=== PATIENT | female | born 1990 | race Caucasian/White ===

== ENCOUNTER 2019-11-08 16:19 | Inpatient (IN) | payer BC, OTHER ==
[~2019-11-08 16:19] MED LIST: Heparin 1,000 UNITS/ML VIAL ONE; Iopamidol-370 76% 500 ML 1 ML ONE
[2019-11-08] MEDS ORDERED: Ondansetron PF 4 MG/2 ML Vial ONE ×2 (16:49→20:03)
[2019-11-08] MEDS ORDERED: Morphine 4 MG/ML VIAL ONE ×2 (16:49→17:23)
[2019-11-08] MEDS ORDERED: Vancomycin 1 GM/200 ML BAG ONE (16:49)
[2019-11-08] MEDS ORDERED: Cefepime 2 GM VIAL ONE (16:49)
[2019-11-08 17:03] LABS: #Lymphocytes 1.1 thou/uL (1.20-3.40); #Monocytes 0.7 thou/uL (0.11-0.59); #Neutrophils 8.9 thou/uL (1.40-6.50); %Basophils 0.4 % (0.0-1.0); %Eosinophils 0.2 % (0.0-10.0); %Lymphocytes 10.1 % (21.0-51.0); %Monocytes 6.7 % (0.0-10.0); %Neutrophils 82.6 % (42.0-75.0); Hemoglobin 13.9 g/dL (12.0-16.0); Mean Corpuscular HGB CONC 33.6 g/dL (32.0-36.0); Mean Corpuscular Volume 95.4 fL (78.0-98.0); Mean Platelet Volume 7.5 fL (7.4-10.4); Platelet Count 241 thou/uL (130-400); Red Blood Cell (RBC) Count 4.33 mill/uL (4.20-5.40); White Blood Cell (WBC) Count 10.8 thou/uL (4.8-10.8)
[2019-11-08 17:28] LABS: ALT (SGPT) 20 U/L (8-55); AST (SGOT) 25 U/L (5-34); Albumin 3.8 g/dL (3.5-5.0); Alkaline Phosphatase 61 U/L (40-110); Anion Gap 15 mmol/L (10-20); BUN (Urea Nitrogen) 11 mg/dL (7.0-18.7); Bilirubin, Total 0.5 mg/dL (0.2-1.2); CK (CPK) 55 U/L (29-168); Calc. Creatinine Clearance 0 mL/min (70-130); Calcium 8.3 mg/dL (7.8-10.44); Carbon Dioxide 19 mmol/L (22-29); Chloride 107 mmol/L (98-107); Estimated GFR-MDRD 71; Globulin 3.3 g/dL (2.4-3.5); Glucose 79 mg/dL (70-105); Lipase 8 U/L (8-78); Magnesium 1.7 mg/dL (1.6-2.6); Potassium 4.5 mmol/L (3.5-5.1); Protein, Total 7.1 g/dL (6.0-8.3); Sodium 136 mmol/L (136-145)
[2019-11-08 17:43] LABS: BHCG - Serum Negative (NEGATIVE); Pregs Control Background? CLEAR/WHITE (CLR/WHITE); Pregs Control Bar Appear? YES (CONTROL BAR)
--- NOTE | 2019-11-08 17:57 | ULT ---
RIGHT UPPER QUADRANT ULTRASOUND: Date: 11/08/2019 PROVIDED CLINICAL HISTORY: Right upper quadrant pain, history of polycystic kidney disease. COMPARISON: 03/06/2017. FINDINGS: The visualized portions of the IVC and pancreas appear normal. Cystic structures involving the liver are demonstrated, compatible with the provided clinical history of polycystic kidney disease. Numerou s bilateral renal cysts are also seen. There is no evidence for solid mass. There is no evidence for intrahepatic or extrahepatic biliary ductal dilatation. The common duct measures approximately 4.0 mm . The gallbladder demonstrates no stones, wall thickening, or pericholecystic fluid. The x ray developer reports a positive sonographic Holden's sign. IMPRESSION: Positive sonographic Holden's sign without evidence for gallstones or gallbladder wall thickening. POS: ABDELRAHMAN
[2019-11-08] MEDS ORDERED: Ketorolac Tromethamine 30 MG/ML VIAL ONE (18:00)
[2019-11-08] MEDS ORDERED: HYDROmorphone 0.5 MG/0.5 ML SYRINGE ONE (18:00)
--- NOTE | 2019-11-08 19:44 | CT ---
CT OF THE ABDOMEN AND PELVIS: Date: 11-08-2019 History: Constant sharp right upper quadrant pain, nausea, vomiting. Technique: Axial CT imaging obtained at 5 mm intervals from the lung bases through the pubic symphysi s with intravenous contrast. Coronal and sagittal reformatted imaging obtained. FINDINGS: Images are compared to a prior study performed 10-13-07. The visualized lung bases are unremarkable. No free intraperitoneal air is seen. Since the prior examination, there has been interval development of numerous cysts throughout the rig ht and left lobe of the liver, the largest noted in the posterior aspect of the dome on the right maria esther suring 4.4 cm. The gallbladder appears grossly unremarkable as does the spleen. The pancreas is unrem arkable. Bilateral adrenal glands are unremarkable. Both kidneys are markedly enlarged and contain innumerable cysts. The size of the kidneys has markedl y increased since the prior examination and the number and size of innumerable cysts within both kidn eys has progressed since the prior exam. On today's examination the right kidney measures at least 15 .7 cm in craniocaudal dimension, excluding a large cyst emanating from the upper pole and the left ki dney measures 18.5 cm in craniocaudal dimension. There is small volume nonspecific free fluid within the pelvic cul-de-sac posteriorly on the left. Th ere is an IUD within the uterus. There is a small fat containing umbilical hernia. No evidence for obstruction of the large or small bowel is seen. The appendix appears unremarkable. There is ventral hernia formation within the Epigastric region superior to the umbilicus, primarily c ontaining fat. There is a probable small amount of fluid and/or a focal node within a small fat conta ining hernia within the ventral upper abdomen on image 43 measuring 9 mm. The vascular structures of the abdomen/pelvis appear patent. No abdominal or pelvic lymphadenopathy is seen. No acute osseous abnormality is evident. IMPRESSION: 1. Progressive of cystic lesions within the liver and within bilateral kidneys. The kidneys are enlar ged. This constellation of findings is consistent autosomal dominant polycystic kidney disease. 2. Small nonobstructing fat containing umbilical hernia. 3. Superior to the umbilical hernia there are small fat containing ventral hernias, which include a n odular internal soft tissue component measuring in the 9 mm range which could represent a node or sma ll volume fluid within the fat containing hernia sac. Clinical correlation is required. 4. No evidence for small bowel obstruction or free intraperitoneal air. POS: HODAN
[2019-11-08 20:06] LABS: Bilirubin Negative (Negative); Blood, Urine 3+ (Negative); Clarity Turbid (Clear); Glucose, Urine (Dipstick) Normal (Negative); Ketone, Urine 40 mg/dL (Negative); Leukocyte 500 Leu/uL (Negative); Nitrite Negative (Negative); Protein, Urine (Dipstick) 50 mg/dL (Neg-Trace); RBC/HPF Greater than 50 HPF (0-3); Specific Gravity, Urine 1.044 (1.002-1.036); Squamous Epithelial 0-3 HPF (0-3); Urobilinogen Normal mg/dL (Less than 2); WBC/HPF Greater than 50 HPF (0-3); pH, Urine 5.5 (5.0-9.0)
[2019-11-08 20:12] LABS: Bacteria/HPF None Seen HPF (None Seen)
--- NOTE | 2019-11-08 21:34 | PDOC.HHP ---
Hospitalist HPI - History of Present Illness flank pain History of Present Illness: Ms. Cortez is a 29 year-old female with a PMHx of PCKD who presented to the ED for worsening dysuria, hematuria, and R-sided flank pain. Pt reports that approximately 4 days ago she developed burning while urinating, increase in frequency, and cloudy urine. She visited an urgent care center who prescribed her Bactrim. She took abx as directed, however she then developed R-sided flank pain. She then visited [facility] where they gave her additional antibiotics and was discharged. Pt overnight had acute worsening of her flank pain that she reports began to wrap around to her RUQ abdomen. Pt endorses subjective fever, chills, and nausea. Denies vomiting, diarrhea, melena. Denies pelvic pain or abnormal vaginal bleeding or discharge, has IUD in place. Has had prior UTIs, but infrequent. In ED patient febrile to 101.6, tachycardia to 130, BP 134/89, 99% on RA. Work- up included CT abdomen/pelvis which showed PCKD, but no stone or obstruction. Liver with multiple cysts. RUQUS no evidence of cholecystitis. Lipase 8, Mg 1.7, Lactic acid 1.3, AST/ALT 25/20, t. lorenza 0.5, Alk phos 61. BUN/Cr 11/0.92. Pt received 1L NS, morphine, dilaudid, vancomycin, and cefepime in ED. Hospitalist ROS - Review of Systems Constitutional: reports: fever, chills. denies: sweats, weakness, malaise, other Eyes: denies: pain, vision change, conjunctivae inflammation, eyelid inflammation, redness, other ENT: denies: ear pain, ear discharge, nose pain, nose discharge, nose congestion, mouth pain, mouth swelling, throat pain, throat swelling, other Respiratory: denies: cough, dry, shortness of breath, hemoptysis, SOB with excertion, pleuritic pain, sputum, wheezing, other Cardiovascular: denies: chest pain, palpitations, orthopnea, paroxysmal noc. dy spnea, edema, light headedness, other Gastrointestinal: reports: nausea, abdominal pain. denies: vomiting, diarrhea, constipation, melena, hematochezia, other Genitourinary: reports: dysuria, frequency, hematuria. denies: incontinence, retention, other Musculoskeletal: reports: back pain. denies: neck pain, shoulder pain, arm pain, hand pain, leg pain, foot pain, other Skin: denies: rash, lesions, sarah, bruising, other Neurological: denies: weakness, numbness, incoordination, change in speech, confusion, seizures, other - Medication Medications: No home medications. Allergic to Vicodin Hospitalist History - Past Medical History Other Medical History: Medical history of PCKD. - Past Surgical History Past Surgical History: reports: Tonsillectomy - Family History Other Family History: PCKD - Social History Smoking Status: Never smoker Alcohol: reports: Rare Drugs: reports: none Living Situation: With Family Activity level: independent ambulation - Exam General Appearance: NAD, awake alert Eye: PERRL, anicteric sclera ENT: normocephalic atraumatic, no oropharyngeal lesions, moist mucosa Neck: supple, symmetric, no JVD, no thyromegaly, no lymphadenopathy, no carotid bruit Heart: RRR, no murmur, no gallops, no rubs, normal peripheral pulses Respiratory: CTAB, no wheezes, no rales, no ronchi, normal chest expansion, no tachypnea, normal percussion Gastrointestinal: soft, non-distended, normal bowel sounds, no palpable masses, no hepatomegaly, no splenomegaly, no bruit, tender to palpation Gastrointestinal - other findings: R CVA tenderness Extremities: no cyanosis, no clubbing, no edema Skin: normal turgor, no lesions, no rashes Neurological: cranial nerve grossly intact, normal sensation to touch, no weakness, no focal deficits, no new deficit Musculoskeletal: normal tone, normal strength, no muscle wasting Psychiatric: normal affect, normal behavior, A&O x 3 Hospitalist Results - Labs Result Diagrams: 11/08/19 16:38 11/08/19 16:38 Lab results: WBC 10.8 thou/uL (4.8-10.8) 11/08/19 16:38 Hgb 13.9 g/dL (12.0-16.0) 11/08/19 16:38 Hct 41.3 % (36.0-47.0) 11/08/19 16:38 MCV 95.4 fL (78.0-98.0) 11/08/19 16:38 Plt Count 241 thou/uL (130-400) 11/08/19 16:38 Neutrophils % 82.6 % (42.0-75.0) H 11/08/19 16:38 Sodium 136 mmol/L (136-145) 11/08/19 16:38 Potassium 4.5 mmol/L (3.5-5.1) 11/08/19 16:38 Chloride 107 mmol/L (98-107) 11/08/19 16:38 Carbon Dioxide 19 mmol/L (22-29) L 11/08/19 16:38 BUN 11 mg/dL (7.0-18.7) 11/08/19 16:38 Creatinine 0.92 mg/dL (0.6-1.1) 11/08/19 16:38 Glucose 79 mg/dL (70-105) 11/08/19 16:38 Lactic Acid 1.3 mmol/L (0.5-2.2) 11/08/19 16:38 Calcium 8.3 mg/dL (7.8-10.44) 11/08/19 16:38 Total Bilirubin 0.5 mg/dL (0.2-1.2) 11/08/19 16:38 AST 25 U/L (5-34) 11/08/19 16:38 ALT 20 U/L (8-55) 11/08/19 16:38 Alkaline Phosphatase 61 U/L (40-110) 11/08/19 16:38 Creatine Kinase 55 U/L (29-168) 11/08/19 16:38 Serum Total Protein 7.1 g/dL (6.0-8.3) 11/08/19 16:38 Albumin 3.8 g/dL (3.5-5.0) 11/08/19 16:38 Lipase 8 U/L (8-78) 11/08/19 16:38 Urine Ketones 40 mg/dL (Negative) A 11/08/19 19:35 Urine Blood 3+ (Negative) A 11/08/19 19:35 Urine Nitrite Negative (Negative) 11/08/19 19:35 Ur Leukocyte Esterase 500 Morena/uL (Negative) A 11/08/19 19:35 Urine RBC Greater than 50 HPF (0-3) A 11/08/19 19:35 Urine WBC Greater than 50 HPF (0-3) A 11/08/19 19:35 Ur Squamous Epith Cells 0-3 HPF (0-3) 11/08/19 19:35 Urine Bacteria None Seen HPF (None Seen) 11/08/19 19:35 Hospitalist H&P A/P - Problem (1) Pyelonephritis Code(s): N12 - TUBULO-INTERSTITIAL NEPHRITIS, NOT SPCF ACUTE OR CHRONIC Status: Acute (2) Sepsis without septic shock Code(s): A41.9 - SEPSIS, UNSPECIFIED ORGANISM Status: Acute (3) RUQ pain Code(s): R10.11 - RIGHT UPPER QUADRANT PAIN Status: Acute (4) PCK (polycystic kidney disease) Code(s): Q61.3 - POLYCYSTIC KIDNEY, UNSPECIFIED Status: Acute - Plan Plan: Pyelonephritis: 29F hx of PCKD who presents with fever, dysuria, and R-sided flank pain. Failed outpatient abx bactrim for UTI. UA grossly positive. CT a/pelvis showed PCKD, but no evidence of stone or obstruction. Pt started on vancomycin and cefepime in ED. PLAN: -Continue vancomycin, cefepime -Trend kidney function -Urine Cx pending Sepsis without septic shock: Pt met SIRS criteria on admission with fever, tachycardia, and tachypnea. WBC 10.8. Lactic acid 1.3. SBP in 120s. In ED received 1L NS, vanc and cefepime. PLAN: -IVF -Continue vanc, cefepime -Blood cx pending -Trend fever curve, WBCs RUQ abdominal pain: RUQ abdominal pain mostly likely referred from kidney. Pt reports pain started as R flank pain then wrapped around to the front of her abdomen. RUQUS showed no evidence of cholecystitis. CT a/p showed enlarged liver with multiple cysts. LFTs AST/ALT 25/20, t. lorenza 0.5, alk phos 61. lipase 8. Abdomen is soft, mildly TTP but non-peritoneal. PLAN: -Treatment per pyelo -Trend labs, continue to monitor Polycystic Kidney Disease: Hx of PCKD. CT a/p showed multiple kidney cysts as well as liver cysts. BUN/Cr 11/0.92. Normotensive. PLAN: Continue to monitor kidney function DVT prophylaxis: SQ heparin FULL CODE
[2019-11-08 21:37] VITALS: BMI 33.0
[2019-11-08] MEDS ORDERED: Sodium Chloride 0.9% 1,000 ML IV SCH ×2 (22:00→22:30)
[2019-11-08] MEDS ORDERED: Morphine 2 MG/ML VIAL SLOW IVP PRN (22:07)
[2019-11-08] MEDS ORDERED: Ondansetron PF 4 MG/2 ML Vial IVP PRN (22:12)
[2019-11-08] MEDS: Morphine 4 MG/ML VIAL SLOW IVP PRN (22:31)
[2019-11-08] MEDS: Acetaminophen 325 MG TAB PO PRN (22:32)
[2019-11-09] MEDS: Morphine 4 MG/ML VIAL SLOW IVP PRN ×4 (02:30→16:53)
[2019-11-09] MEDS ORDERED: Morphine 2 MG/ML VIAL SLOW IVP SCH (04:15)
[2019-11-09] MEDS: Acetaminophen 325 MG TAB PO PRN (04:34)
[2019-11-09] MEDS ORDERED: Vancomycin HCl 1.25 GM in Sodium Chloride 0.9% 250 ML 250 ML IVPB SCH (05:00)
[2019-11-09 06:08] LABS: #Monocytes 0.8 thou/uL (0.11-0.59); #Neutrophils 8.8 thou/uL (1.40-6.50); %Basophils 0.2 % (0.0-1.0); %Eosinophils 0.3 % (0.0-10.0); %Lymphocytes 9.3 % (21.0-51.0); %Monocytes 7.7 % (0.0-10.0); %Neutrophils 82.4 % (42.0-75.0); Hemoglobin 12.7 g/dL (12.0-16.0); Mean Corpuscular HGB CONC 32.5 g/dL (32.0-36.0); Mean Corpuscular Hemoglobin 31.3 pg (27.0-31.0); Mean Corpuscular Volume 96.5 fL (78.0-98.0); Mean Platelet Volume 7.4 fL (7.4-10.4); Platelet Count 217 thou/uL (130-400); RBC Distribution Width 11.9 % (11.5-14.5); Red Blood Cell (RBC) Count 4.04 mill/uL (4.20-5.40); White Blood Cell (WBC) Count 10.6 thou/uL (4.8-10.8)
[2019-11-09 06:25] LABS: Lactic Acid 0.6 mmol/L (0.5-2.2)
[2019-11-09 06:29] LABS: ALT (SGPT) 17 U/L (8-55); AST (SGOT) 15 U/L (5-34); Albumin 3.2 g/dL (3.5-5.0); Alkaline Phosphatase 55 U/L (40-110); Anion Gap 13 mmol/L (10-20); BUN (Urea Nitrogen) 8 mg/dL (7.0-18.7); Bilirubin, Total 0.4 mg/dL (0.2-1.2); Calc. Creatinine Clearance 128 mL/min (70-130); Calcium 7.7 mg/dL (7.8-10.44); Carbon Dioxide 17 mmol/L (22-29); Chloride 110 mmol/L (98-107); Estimated GFR-MDRD 84; Globulin 2.7 g/dL (2.4-3.5); Glucose 94 mg/dL (70-105); Potassium 3.8 mmol/L (3.5-5.1); Protein, Total 5.9 g/dL (6.0-8.3); Sodium 136 mmol/L (136-145)
[2019-11-09] MEDS ORDERED: Cefepime 2 GM in Sodium Chloride 0.9% 100 ML IVPB SCH (09:00)
[2019-11-09] MEDS: Ondansetron ODT 4 MG TAB PO PRN ×2 (09:04→15:23)
[2019-11-09] MEDS: Prenatal Vitamin 1 TAB PO SCH (09:05)
[2019-11-09] MEDS: Heparin 5,000 UNITS/ML VIAL SC SCH ×2 (09:12→15:58)
[2019-11-09] MEDS ORDERED: Sodium Chloride 0.9% 1,000 ML IV SCH (09:52)
[2019-11-09] MEDS ORDERED: Acetaminophen/Codeine 30-300mg Tablet PO PRN (09:53)
[2019-11-09] MEDS ORDERED: cefTRIAXone\\ROCEPHIN 1 GM in Sodium Chloride 0.9% 100 ML IVPB SCH (10:00)
[2019-11-09] MEDS: Acetaminophen/Codeine 30-300mg Tablet PO PRN ×3 (10:02→18:22)
[2019-11-09] MEDS: cefTRIAXone\\ROCEPHIN 2 GM in Sodium Chloride 0.9% 100 ML IVPB SCH (10:24)
--- NOTE | 2019-11-09 13:21 | PDOC.HOSPP ---
- Subjective Encounter Date: 11/09/19 Encounter Time: 13:19 Subjective: pt up in bed complains of pain to her RUQ and right flank area. - Objective Vital Signs & Weight: Vital Signs (12 hours) Temp Pulse Resp BP BP BP Pulse Ox 11/09/19 12:00 98.7 F 100 18 114/62 97 11/09/19 08:58 102 H 20 122/61 11/09/19 08:00 98.8 F 88 18 91/52 L 96 11/09/19 05:35 99.7 F H 11/09/19 03:53 101.7 F H 117 H 16 102/59 L 96 Weight Weight 175 lb Result Diagrams: 11/09/19 05:57 11/09/19 05:57 Hospitalist ROS - Review of Systems Respiratory: denies: cough, dry, shortness of breath, hemoptysis, SOB with excertion, pleuritic pain, sputum, wheezing, other Cardiovascular: denies: chest pain, palpitations, orthopnea, paroxysmal noc. dyspnea, edema, light headedness, other Gastrointestinal: reports: other (right flank area) Musculoskeletal: reports: other - Medication Medications: Active Medications Generic Name Dose Route Start Last Admin Trade Name Freq PRN Reason Stop Dose Admin Acetaminophen 650 mg 11/08/19 22:12 11/09/19 04:34 Acetaminophen 325 Mg Tab PO 650 mg Q4H PRN Administration Headache/Fever/Mild Pain (1-3) Acetaminophen/Codeine Phosphate 2 tab 11/09/19 09:46 11/09/19 10:02 Acetaminophen/Codeine 30-300mg Tablet PO 2 tab Q4H PRN Administration Pain Heparin Sodium (Porcine) 5,000 units 11/09/19 09:00 11/09/19 09:12 Heparin 5,000 Units/Ml Vial SC 5,000 units TID CHUCKIE Administration Ceftriaxone Sodium 2 gm/ 100 mls @ 200 mls/hr 11/09/19 10:00 11/09/19 10:24 Sodium Chloride IVPB 100 mls Q24HR CHUCKIE Administration Sodium Chloride 1,000 mls @ 75 mls/hr 11/09/19 09:52 11/09/19 09:59 Normal Saline 0.9% IV Not Given .[id number] CHUCKIE Morphine Sulfate 4 mg 11/08/19 22:07 11/09/19 13:09 Morphine 4 Mg/Ml Vial SLOW IVP 4 mg Q4H PRN Administration Severe Pain (7-10) Ondansetron HCl 4 mg 11/08/19 22:12 11/09/19 09:04 Ondansetron Odt 4 Mg Tab PO 4 mg Q6H PRN Administration Nausea/Vomiting Multivit/Folic Acid/Iron 1 tab 11/09/19 09:00 11/09/19 09:05 Vitamin 1 Tab PO 1 tab DAILY CHUCKIE Administration - Exam Heart: negative: RRR, no murmur, no gallops, no rubs, normal peripheral pulses, irregular, diminshed peripheral pulses, murmur present, II/IV, III/IV Respiratory: negative: CTAB, no wheezes, no rales, no ronchi, normal chest expansion, no tachypnea, normal percussion, rales, rhonchi, tachypneic, wheezes Gastrointestinal: negative: soft, non-tender, non-distended, normal bowel sounds, no palpable masses, no hepatomegaly, no splenomegaly, no bruit, no guarding, no rigidity, tender to palpation, distended, diminished bowl sounds, voluntary guarding Extremities: negative: no cyanosis, no clubbing, no edema, 1+ LE edema, 2+ LE edema, clubbing Hosp A/P (1) UTI (urinary tract infection) Status: Acute (2) PCK (polycystic kidney disease) Code(s): Q61.3 - POLYCYSTIC KIDNEY, UNSPECIFIED Status: Acute (3) RUQ pain Code(s): R10.11 - RIGHT UPPER QUADRANT PAIN Status: Acute (4) Sepsis without septic shock Code(s): A41.9 - SEPSIS, UNSPECIFIED ORGANISM Status: Acute - Plan pt's urine indicated ecoli will change abx to ceftriaxone. will continue fluids. pt on dvt ppx. pt has liver cyst which could be causing her pain. will continue to monitor.
[2019-11-09 13:33] LABS: SARS-CoV-2 MS2 Positive; SARS-CoV-2 N Gene Negative; SARS-CoV-2 S Gene Negative; SARS-CoV-2 by NAA Not Detected (NotDetected); SARS-CoV-2 orf1ab Negative
[2019-11-09] MEDS: Sodium Chloride 0.9% 1,000 ML IV SCH (18:22)
[2019-11-10] MEDS: Acetaminophen/Codeine 30-300mg Tablet PO PRN ×4 (01:05→20:00)
[2019-11-10] MEDS: Sodium Chloride 0.9% 1,000 ML IV SCH ×2 (04:00→13:32)
[2019-11-10] MEDS: Enoxaparin Sodium 40 MG/0.4 ML SYRINGE SC SCH (08:50)
[2019-11-10] MEDS: Saccharomyces boulardii 250 MG CAP PO SCH (08:50)
[2019-11-10] MEDS: cefTRIAXone\\ROCEPHIN 2 GM in Sodium Chloride 0.9% 100 ML IVPB SCH (12:00)
[2019-11-10] MEDS: Prenatal Vitamin 1 TAB PO SCH (12:00)
[2019-11-10] MEDS ORDERED: Polyethylene Glycol 3350 17 GM Packet PO PRN (13:26)
--- NOTE | 2019-11-10 14:27 | PDOC.HOSPP ---
- Subjective Encounter Date: 11/10/19 Encounter Time: 11:15 Subjective: pt up in bed no complains - Objective Vital Signs & Weight: Vital Signs (12 hours) Temp Pulse Resp BP Pulse Ox 11/10/19 08:00 98.9 F 83 18 118/72 96 Weight Weight 175 lb I&O: 11/09/19 11/10/19 11/11/19 06:59 06:59 06:59 Intake Total 1695 Balance 1695 Result Diagrams: 11/09/19 05:57 11/09/19 05:57 Hospitalist ROS - Review of Systems Cardiovascular: denies: chest pain, palpitations, orthopnea, paroxysmal noc. dyspnea, edema, light headedness, other Gastrointestinal: denies: nausea, vomiting, abdominal pain, diarrhea, constipation, melena, hematochezia, other Genitourinary: denies: dysuria, frequency, incontinence, hematuria, retention, other - Medication Medications: Active Medications Generic Name Dose Route Start Last Admin Trade Name Freq PRN Reason Stop Dose Admin Acetaminophen 650 mg 11/08/19 22:12 11/09/19 04:34 Acetaminophen 325 Mg Tab PO 650 mg Q4H PRN Administration Headache/Fever/Mild Pain (1-3) Acetaminophen/Codeine Phosphate 2 tab 11/09/19 09:46 11/10/19 13:37 Acetaminophen/Codeine 30-300mg Tablet PO 2 tab Q4H PRN Administration Pain Enoxaparin Sodium 40 mg 11/10/19 09:00 11/10/19 08:50 Enoxaparin Sodium 40 Mg/0.4 Ml Syringe SC 40 mg 0900 CHUCKIE Administration Ceftriaxone Sodium 2 gm/ 100 mls @ 200 mls/hr 11/09/19 10:00 11/10/19 12:00 Sodium Chloride IVPB 100 mls Q24HR CHUCKIE Administration Sodium Chloride 1,000 mls @ 100 mls/hr 11/09/19 16:13 11/10/19 13:32 Normal Saline 0.9% IV Not Given .Q10H CHUCKIE Morphine Sulfate 4 mg 11/08/19 22:07 11/09/19 16:53 Morphine 4 Mg/Ml Vial SLOW IVP 4 mg Q4H PRN Administration Severe Pain (7-10) Ondansetron HCl 4 mg 11/08/19 22:12 11/09/19 15:23 Ondansetron Odt 4 Mg Tab PO 4 mg Q6H PRN Administration Nausea/Vomiting Polyethylene Glycol 17 gm 11/10/19 13:26 11/10/19 13:40 Polyethylene Glycol 3350 17 Gm Packet PO 17 gm DAILYPRN PRN Administration Constipation Multivit/Folic Acid/Iron 1 tab 11/09/19 09:00 11/10/19 12:00 Vitamin 1 Tab PO 1 tab DAILY CHUCKIE Administration Saccharomyces Boulardii 250 mg 11/10/19 09:00 11/10/19 08:50 Saccharomyces Boulardii 250 Mg Cap PO 250 mg DAILY CHUCKIE Administration - Exam Heart: negative: RRR, no murmur, no gallops, no rubs, normal peripheral pulses, irregular, diminshed peripheral pulses, murmur present, II/IV, III/IV Respiratory: negative: CTAB, no wheezes, no rales, no ronchi, normal chest e xpansion, no tachypnea, normal percussion, rales, rhonchi, tachypneic, wheezes Gastrointestinal: negative: soft, non-tender, non-distended, normal bowel sounds, no palpable masses, no hepatomegaly, no splenomegaly, no bruit, no guarding, no rigidity, tender to palpation, distended, diminished bowl sounds, voluntary guarding Extremities: negative: no cyanosis, no clubbing, no edema, 1+ LE edema, 2+ LE edema, clubbing Hosp A/P (1) UTI (urinary tract infection) Status: Acute (2) PCK (polycystic kidney disease) Code(s): Q61.3 - POLYCYSTIC KIDNEY, UNSPECIFIED Status: Acute (3) RUQ pain Code(s): R10.11 - RIGHT UPPER QUADRANT PAIN Status: Acute (4) Sepsis without septic shock Code(s): A41.9 - SEPSIS, UNSPECIFIED ORGANISM Status: Acute - Plan pt's urine indicated ecoli will change abx to ceftriaxone. will continue fluids. pt on dvt ppx. pt has liver cyst which could be causing her pain. will continue to monitor. 11/09 pt's urine cx indicated ecoli. will switch her to oral abx and possible discharge in the next 24-48hr. pt does have blood in her urine most likely due to her PCKD.
[2019-11-10] MEDS: Sodium Bicarbonate 150 MEQ in Dextrose 5% in Water 1,000 ML IV SCH (18:12)
[2019-11-10] MEDS: Senokot S 8.6-50 MG TAB PO SCH (20:02)
[2019-11-11] MEDS: Acetaminophen/Codeine 30-300mg Tablet PO PRN ×4 (00:37→20:33)
--- NOTE | 2019-11-11 00:53 | CON ---
DATE OF CONSULTATION: CONSULTING PHYSICIAN: Matt Jimenez MD REQUESTING PHYSICIAN: Dr. Wilson. REASON FOR CONSULTATION: Polycystic kidney disease as well as pyelonephritis. IMPRESSION: 1. Pyelonephritis, possibly in the context of infected kidney cyst. 2. Polycystic kidney disease with strong family history. 3. Metabolic acidosis. PLAN: 1. Given that this patient has polycystic kidney disease, we will recommend the use of quinolones, which has a better penetration to the cyst in terms of treating infected cyst. 2. We will strongly recommend outpatient Nephrology followup in my office, where I can recruit this patient into [facility] treatment in order to slow the progression of this polycystic kidney disease, especially given the strong family history. 3. We will start this patient on gentle rehydration with bicarb based infusion. HISTORY OF PRESENT ILLNESS: History is that of a 29-year-old female patient with past medical history significant for polycystic kidney disease, who presented with dysuria and hematuria and right-sided flank pain. The patient has been diagnosed with pyelonephritis, still maintained with preserved kidney function. However, imaging studies did reveal massive ascites of both kidneys with multiple cysts as well as in the liver consistent with polycystic kidney disease. As a result of these findings, decision has been taken to involve Renal in the management of this case. PAST MEDICAL HISTORY: As documented in the body of the history. MEDICATIONS: Reviewed as documented on [employer]. ALLERGIES: TO CODEINE, , VICODIN. FAMILY HISTORY: There is a very strong family history of kidney disease. The mother is on dialysis already and has a brother with advanced kidney disease all in the context of polycystic kidney disease. SOCIAL HISTORY: No alcohol. No tobacco. No illicit drug use. REVIEW OF SYSTEMS: As documented in the body of the history. All the other systems were reviewed and found not to be significantly related to present illness. PHYSICAL EXAMINATION: GENERAL: The patient was found to be hemodynamically stable, noted with the following vital signs. VITAL SIGNS: Afebrile, temperature 98.9, pulse 83, respiratory rate of 18, O2 saturations are 96% with blood pressure 118/72. HEENT: Unremarkable. Moist oral mucosa. NECK: Supple. No conjunctival injection. No icterus. CARDIOVASCULAR SYSTEM: First and second heart sounds were heard. RESPIRATORY SYSTEM: Clear to auscultation. DIGESTIVE SYSTEM: Revealed a benign abdomen with positive bowel sounds. EXTREMITIES: No peripheral edema. SKIN: No new gross rash. LYMPHATICS: No peripheral lymphadenopathy. SUMMARY: A 29-year-old female patient with a known history of polycystic kidney disease, who presented here with evidence of pyelonephritis. Thank you for this consultation. We will follow with you. Job ID: [id number]
[2019-11-11 10:32] LABS: Anion Gap 12 mmol/L (10-20); BUN (Urea Nitrogen) 5 mg/dL (7.0-18.7); Calc. Creatinine Clearance 144 mL/min (70-130); Calcium 8.3 mg/dL (7.8-10.44); Carbon Dioxide 25 mmol/L (22-29); Chloride 107 mmol/L (98-107); Estimated GFR-MDRD Greater than 90; Glucose 155 mg/dL (70-105); Potassium 3.7 mmol/L (3.5-5.1); Sodium 140 mmol/L (136-145)
[2019-11-11] MEDS: Sodium Bicarbonate 150 MEQ in Dextrose 5% in Water 1,000 ML IV SCH (10:38)
[2019-11-11] MEDS: cefTRIAXone\\ROCEPHIN 2 GM in Sodium Chloride 0.9% 100 ML IVPB SCH (11:01)
[2019-11-11] MEDS: Prenatal Vitamin 1 TAB PO SCH (11:01)
[2019-11-11] MEDS: Enoxaparin Sodium 40 MG/0.4 ML SYRINGE SC SCH (11:04)
[2019-11-11] MEDS: Polyethylene Glycol 3350 17 GM Packet PO SCH (11:05)
[2019-11-11] MEDS: Senokot S 8.6-50 MG TAB PO SCH ×2 (11:05→20:33)
[2019-11-11] MEDS: Saccharomyces boulardii 250 MG CAP PO SCH (11:05)
[2019-11-11] MEDS ORDERED: Acyclovir 5% Oint. 15 GM TUBE TOP SCH ×2 (12:00)
--- NOTE | 2019-11-11 12:45 | PDOC.HOSPP ---
- Subjective Encounter Date: 11/11/19 Encounter Time: 10:30 Subjective: pt up in bed complains of sores around her lips. - Objective Vital Signs & Weight: Vital Signs (12 hours) Temp Pulse Resp BP Pulse Ox 11/11/19 08:00 98.1 F 83 18 130/85 97 Weight Weight 175 lb I&O: 11/10/19 11/11/19 11/12/19 06:59 06:59 06:59 Intake Total 1695 Balance 1695 Result Diagrams: 11/09/19 05:57 11/11/19 10:02 Hospitalist ROS - Review of Systems Cardiovascular: denies: chest pain, palpitations, orthopnea, paroxysmal noc. dyspnea, edema, light headedness, other Gastrointestinal: denies: nausea, vomiting, abdominal pain, diarrhea, constipation, melena, hematochezia, other Skin: reports: rash (around her lips) - Medication Medications: Active Medications Generic Name Dose Route Start Last Admin Trade Name Freq PRN Reason Stop Dose Admin Acetaminophen 650 mg 11/08/19 22:12 11/09/19 04:34 Acetaminophen 325 Mg Tab PO 650 mg Q4H PRN Administration Headache/Fever/Mild Pain (1-3) Acetaminophen/Codeine Phosphate 2 tab 11/09/19 09:46 11/11/19 07:55 Acetaminophen/Codeine 30-300mg Tablet PO 2 tab Q4H PRN Administration Pain Enoxaparin Sodium 40 mg 11/10/19 09:00 11/11/19 11:04 Enoxaparin Sodium 40 Mg/0.4 Ml Syringe SC 40 mg 0900 CHUCKIE Administration Ceftriaxone Sodium 2 gm/ 100 mls @ 200 mls/hr 11/09/19 10:00 11/11/19 11:01 Sodium Chloride IVPB Not Given Q24HR CHUCKIE Sodium Bicarbonate 150 meq/ 1,150 mls @ 75 mls/hr 11/10/19 16:45 11/11/19 10:38 Dextrose/Water IV Not Given .[id number] CHUCKIE Morphine Sulfate 4 mg 11/08/19 22:07 11/09/19 16:53 Morphine 4 Mg/Ml Vial SLOW IVP 4 mg Q4H PRN Administration Severe Pain (7-10) Ondansetron HCl 4 mg 11/08/19 22:12 11/09/19 15:23 Ondansetron Odt 4 Mg Tab PO 4 mg Q6H PRN Administration Nausea/Vomiting Polyethylene Glycol 17 gm 11/11/19 09:00 11/11/19 11:05 Polyethylene Glycol 3350 17 Gm Packet PO 17 gm DAILY CHUCKIE Administration Polyethylene Glycol 17 gm 11/10/19 13:26 11/10/19 13:40 Polyethylene Glycol 3350 17 Gm Packet PO 17 gm DAILYPRN PRN Administration Constipation Multivit/Folic Acid/Iron 1 tab 11/09/19 09:00 11/11/19 11:01 Vitamin 1 Tab PO Not Given DAILY CHUCKIE Saccharomyces Boulardii 250 mg 11/10/19 09:00 11/11/19 11:05 Saccharomyces Boulardii 250 Mg Cap PO 250 mg DAILY CHUCKIE Administration Senna/Docusate Sodium 1 tab 11/10/19 21:00 11/11/19 11:05 Senokot S 8.6-50 Mg Tab PO 1 tab BID CHUCKIE Administration - Exam ENT - other findings: pustular lesion around her lips Heart: negative: RRR, no murmur, no gallops, no rubs, normal peripheral pulses, irregular, diminshed peripheral pulses, murmur present, II/IV, III/IV Respiratory: negative: CTAB, no wheezes, no rales, no ronchi, normal chest expansion, no tachypnea, normal percussion, rales, rhonchi, tachypneic, wheezes Gastrointestinal: negative: soft, non-tender, non-distended, normal bowel sounds , no palpable masses, no hepatomegaly, no splenomegaly, no bruit, no guarding, no rigidity, tender to palpation, distended, diminished bowl sounds, voluntary guarding Hosp A/P (1) UTI (urinary tract infection) Status: Acute (2) PCK (polycystic kidney disease) Code(s): Q61.3 - POLYCYSTIC KIDNEY, UNSPECIFIED Status: Acute (3) RUQ pain Code(s): R10.11 - RIGHT UPPER QUADRANT PAIN Status: Acute (4) Sepsis without septic shock Code(s): A41.9 - SEPSIS, UNSPECIFIED ORGANISM Status: Acute - Plan pt's urine indicated ecoli will change abx to ceftriaxone. will continue fluids. pt on dvt ppx. pt has liver cyst which could be causing her pain. will continue to monitor. 11/09 pt's urine cx indicated ecoli. will switch her to oral abx and possible discharge in the next 24-48hr. pt does have blood in her urine most likely due to her PCKD. 11/10 will continue current abx given that she has PCKD and her cx is resistant to fluoroquinolones will get ID to see pt. will also rx her some topical acylovir.
--- NOTE | 2019-11-11 18:41 | PRG ---
DATE OF SERVICE: 11/11/2019 SUBJECTIVE: The patient is seen and examined, noted with the following vital signs. OBJECTIVE: VITAL SIGNS: Afebrile, temperature , pulse 83, respiratory rate of 18, O2 saturation of 97%, blood pressure of 130/85. HEENT: Unremarkable. CARDIOVASCULAR SYSTEM: First and second heart sounds were heard. RESPIRATORY SYSTEM: Clear to auscultation. DIGESTIVE SYSTEM: Revealed a benign abdomen. Positive bowel sounds. EXTREMITIES: No peripheral edema. SKIN: No new gross rash. LYMPHATICS: No peripheral lymphadenopathy. LABORATORY INVESTIGATION: Showed bicarb of 25 and creatinine of 0.71. IMPRESSION: 1. Polycystic kidney disease. 2. Pyelonephritis, on treatment. 3. Metabolic acidosis, resolved. PLAN: 1. Discontinue bicarb based infusion. 2. Discontinue Cipro as the patient's organism is resistant to Cipro. 3. Evaluate the patient's drug reaction. 4. Further management to be dependent on the clinical course. Outpatient Nephrology followup. Status post discharge strongly recommended. Job ID: [id number]
--- NOTE | 2019-11-11 19:24 | CON ---
DATE OF CONSULTATION: 11/11/2019 REASON FOR CONSULTATION: Polycystic kidney disease with pyelonephritis. HISTORY OF PRESENT ILLNESS: A 29-year-old who has a history of polycystic kidney disease identified when she was 9 years old, when she had hematuria during physical education classes in school. Since then, she has had a few episodes of UTI. Typically, she has urinary frequency, but no fever. No other symptoms managed in the outpatient setting, but this time, she became sick with fever, nausea, vomiting, and right flank pain. On arrival, she had a temp 101.6, respiratory rate 22, blood pressure 130/98. She had tenderness in the right flank. She is tachycardic. Lung exam was normal. Other findings included white cell count 10.8 and 10.6, hemoglobin 12.7, platelets 217, 82% neutrophils. Sodium 140, creatinine 0.71. Liver profile normal. Albumin 3.8 and then 3.2. Urinalysis greater than 50 wbc's. COVID not detected. Urine culture from November 04 with E coli with resistance to quinolones and Bactrim. Currently, she is on ceftriaxone and is feeling better. No respiratory symptoms or abdominal pain except for flank pain in the right side, which is actually less than before. She has no dysuria or frequency. No diarrhea. No joint symptoms. No neurological symptoms. MEDICAL HISTORY: She has a history of PKD (polycystic kidney disease), recurrent UTIs, mostly cystitis. ALLERGIES: VICODIN. MEDICATIONS: 1. Morris. 2. Rocephin. FAMILY HISTORY: PKD in brother and mother. PHYSICAL EXAMINATION: VITAL SIGNS: T-max 101.7. She seems to be defervescing steadily. Other vital signs are normal. Room air O2 saturations are 97%. GENERAL: Does appear in distress. LYMPHATIC: No lymphadenopathy. HEENT: Ocular movements conjugate. Sclerae white. Oral cavity normal. NECK: Supple. LUNGS: Symmetric. Clear breath sounds. HEART: S1 and S2. Regular rate. No S3 or S4. ABDOMEN: Tenderness in the right flank area and in the back area as well. EXTREMITIES: No joint inflammatory activity. No edema. Pulses 1+ in dorsalis pedis. NEUROLOGIC: Cognitive function appears to be intact. Neuro examination is nonfocal. LABORATORY DATA: White cell count 10.6. Abdomen and pelvis CT with cystic lesions in liver, bilateral kidneys, umbilical hernia. There is a nodular internal soft tissue component, which could represent a node or small volume fluid within the hernia sac. No obstruction noted. Abdominal ultrasound with sonographic Holden sign. No evidence of gallstones or gallbladder wall thickening. ASSESSMENT: Polycystic kidney disease, recurrent urinary tract infections now with evidence of pyelonephritis, organism is resistant to quinolones and Bactrim. DISCUSSION: Since polycystic kidney disease can be associated with cyst infection and this is the more likely scenario here, there is a harder penetration of the antimicrobial therapy in the interior of the cysts, so I would recommend continuation of Rocephin, PICC line placement, and treat for at least 2 weeks or maybe even longer. Job ID: [id number]
[2019-11-12] MEDS: Acetaminophen/Codeine 30-300mg Tablet PO PRN (07:13)
[2019-11-12 07:35] VITALS: BP 115/78
[2019-11-12] MEDS: Saccharomyces boulardii 250 MG CAP PO SCH (08:35)
[2019-11-12] MEDS: Enoxaparin Sodium 40 MG/0.4 ML SYRINGE SC SCH (08:35)
[2019-11-12] MEDS: Polyethylene Glycol 3350 17 GM Packet PO SCH (08:36)
[2019-11-12] MEDS: Senokot S 8.6-50 MG TAB PO SCH (08:36)
[2019-11-12 08:39] VITALS: TEMP 98
[2019-11-12] MEDS: Prenatal Vitamin 1 TAB PO SCH (09:15)
--- NOTE | 2019-11-12 10:30 | SPC ---
SPC CVP LINE PICC INITAL >5: 11/12/2019 9:58 AM INDICATION: Pyelonephritis PROCEDURE: Peripherally placed 45 cm single lumen power PICC line. PICC Line Placement: The left arm was prepped and draped in sterile fashion. One percent lidocaine was used for local anesthetic. Under fluoroscopic and ultrasound guidance, the left basilic vein was patent and accessed with a micr opuncture needle. A guide wire was then advanced into the left basilic vein. A vascular sheath was then advanced over a guide wire, and a single lumen PICC line was trimmed. The PICC line was th en advanced into the central venous system. A final placement film demonstrates the tip of the catheter terminated in the caval-atrial junction. After confirmation of the catheter position, the catheter was sutured in place at the skin entry site . There was no immediate complication. Total fluoroscopic time 0.2 minutes. Total exposure 957 mgray/sq cm IMPRESSION: Peripheral placement of a single lumen power PICC line into the left basilic vein using fluoroscopic and ultrasound guidance.
--- NOTE | 2019-11-12 15:07 | PRG ---
DATE OF SERVICE: 11/12/2019 SUBJECTIVE: The patient is seen and examined, noted with the following vital signs. OBJECTIVE: VITAL SIGNS: T-maximum of 100.3, pulse 80, respiratory rate of 18, O2 saturations are 97%, and blood pressure 115/78. HEENT: Unremarkable. CARDIOVASCULAR: First and second heart sounds were heard. RESPIRATORY: Clear to auscultation. DIGESTIVE: Benign abdomen with positive bowel sounds. EXTREMITIES: No peripheral edema. SKIN: No new gross rash. LYMPHATICS: No peripheral lymphadenopathy. IMPRESSION: 1. Urinary tract infection/pyelonephritis. 2. Polycystic kidney disease with large kidneys. 3. Metabolic acidosis, resolved. PLAN: 1. Continue with recommendation from the Infectious Disease specialist. 2. Outpatient Nephrology the patient to be worked up and initiated on any medication . Job ID: [id number]
--- NOTE | 2019-11-13 04:22 | DIS ---
DATE OF ADMISSION: 11/08/2019 DATE OF DISCHARGE: 11/12/2019 DISCHARGE DIAGNOSES: 1. Pyelonephritis. 2. Polycystic kidney disease. HOSPITAL COURSE: The patient is a very pleasant 29-year-old female who initially presented to the hospital with flank pain and fever. At this time, she had a CT of abdomen and pelvis that indicated progressive cystic lesions in her liver and bilateral kidneys. She had a small nonobstructing fat containing umbilical hernia. Superior to the umbilical hernia, there was a small fat containing ventral hernia. At this time, she had Bactrim prior to coming into the hospital about 2 days I believe. Her urine culture from the previous [facility] indicated E. coli, which was resistant to the fluoroquinolones. I did consult Infectious Disease given her history of polycystic kidney disease. At this time, she underwent a PICC line placement and was put on Rocephin. She will follow up with them as an outpatient. Her home medications will be Florastor, Rocephin, vitamin, and Tylenol as needed pain. PHYSICAL EXAMINATION: VITAL SIGNS: Temperature of 98.0, pulse 97, respiratory rate 18, and blood pressure 115/78. GENERAL: She is awake, alert, and oriented x3. Does not appear in distress. CV: S1 and S2 present. No murmurs, rubs, or gallops. She did have some oral blisters around her lip. She was put on topical acyclovir. However, her mom bought her some Abreva and they have significantly improved. Job ID: [id number]
== END 2019-11-12 10:26 | disposition home or self-care (01) | DRG 872 ==
LOC: ERS 16:19 → ONC 19:57
PROVIDERS: ADMIT Internal Medicine; ATTEND Internal Medicine
PROC: 02HV33Z Insertion of Infusion Device into Superior Vena Cava, Percutaneous Approach (ICD-10-PCS; principal; 2019-11-12)
PROC: B518ZZA Fluoroscopy of Superior Vena Cava, Guidance (ICD-10-PCS; 2019-11-12)
PROC: B548ZZA Ultrasonography of Superior Vena Cava, Guidance (ICD-10-PCS; 2019-11-12)
DX: A41.51 Sepsis due to Escherichia coli [E. coli] (principal); N12 Tubulo-interstitial nephritis, not specified as acute or chronic; Q61.3 Polycystic kidney, unspecified; Z16.23 Resistance to quinolones and fluoroquinolones; E87.2 Acidosis; Z20.828 Contact with and (suspected) exposure to other viral communicable diseases; K76.89 Other specified diseases of liver; K43.9 Ventral hernia without obstruction or gangrene; K42.9 Umbilical hernia without obstruction or gangrene; Z79.899 Other long term (current) drug therapy; Z88.8 Allergy status to other drugs, medicaments and biological substances
CPT/HCPCS: 36415; 36569; 74177; 76705; 80048; 80053; 81003; 81015; 82550; 83605; 83690; 83735; 84703; 85025; 87040; 87077; 87086; 87186; 87635; 93005; 96365; 96366; 96367; 96375; 96376; J0692; J0696; J0744; J1170; J1644; J1650; J1885; J2270; J2405; J3370; J3490; J7050; J7070; Q0162; Q9967; U0003